=== PATIENT | male | born 1980 | race Caucasian/White ===

== ENCOUNTER 2020-03-10 09:34 | Inpatient (IN) ==
[2020-03-10 10:05] LABS: Hematocrit 48.3 % (42.0-52.0); Hemoglobin 17.1 gm/dL (13.5-18.0); Mean Cell Volume 83.9 fl (78-100); Mean Corpuscular Hemoglobin 29.7 pg (27-31); Mean Corpuscular Hgb Conc 35.4 g/dl (32-36); Mean Platelet Volume 9.8 fl (8-11.3); Neutrophil # 4.6 K/mm3 (1.3-6.0); Neutrophil % 66.3 % (42-75.0); Platelet Count 217 K/mm3 (150-450); Red Blood Count 5.76 M/mm3 (4.7-6.0); White Blood Count 6.9 K/mm3 (4.0-10.5)
--- NOTE | 2020-03-10 10:07 | ERNOTE ---
Chest Pain/Cardiac HPI Chief Complaint: Chest Pain Time Seen by Provider: 03/10/20 09:53 Source: patient Exam Limitations: no limitations Immunizations: IMMUNIZATION HX Immunizations Up to Date Yes History of Influenza Vaccine No Hx Pneumococcal Vaccination No Allergies/Adverse Reactions: Allergies No Known Allergies Allergy (Verified 03/10/20 09:49) Home Medications: HOME MEDICATIONS NK [No Home Medication] 08/14/16 [Last Taken Unknown] Narrative: Patient is here for chest pain and feeling shaky. He states that he was in his normal state of health last night when he went to bed, woke up at 6:00 this morning feeling shaky, he has chest pressure that he rates at a 3 out of 10, no radiation. Also has some low back pain and vomited once at home. He denies any nausea right now, denies any abdominal pain or diarrhea. He has no significant past medical history, takes no prescription medications, does not smoke, he drinks alcohol about twice a week, had 4 drinks yesterday afternoon. He works at the [employer], last shift was a week ago. He is not aware of any exposure to chemicals there. Date (Duration): 03/10/20 Time (Timing): 06:00 Timing: constant Severity/Quality: mild, pressure Location: central Chest Pain Radiation: no radiation Activities at Onset: sleep Nitro Today/Relief: no nitro taken today Aspirin Treatment Today: no aspirin today Associated Symptoms: Present: diaphoresis. Absent: headache, shortness of breath, fever/chills Prior Chest Pain/Cardiac Workup: Denies: prior chest pain, no prior cardiac workup Prior Treatment: Denies: recently seen, currently on antibiotics Review of Systems - Review of Systems Constitutional: Present: chills. Absent: recent illness ENT: Absent: nose congestion, nasal drainage, sore throat Respiratory: Absent: shortness of breath Cardiology: Present: chest pain, palpitations Gastrointestinal/Abdominal: Present: See HPI. Absent: abdominal pain Genitourinary: Absent: frequency, dysuria Musculoskeletal: Present: See HPI, back pain - low Skin: Absent: rash Neurological: Absent: headache Medical History (Last Reviewed 03/10/20 @ 10:19 by Sharri Royal MD) No pertinent past medical history Surgical History: Surgical History (Last Reviewed 03/10/20 @ 10:19 by Sharri Royal MD) No pertinent past surgical history Family History: Family History (Last Reviewed 03/10/20 @ 13:01 by Mariola Flores RN) Mother Emphysema of lung Father No problems noted. 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 Tobacco: Smoking Status: Never smoker Alcohol: alcohol intake: current alcohol intake frequency: holiday/special occasion Substance Use: substance use type: does not use Dietary Habits: caffeine: Yes caffeine comment: daily Physical Exam - Physical Exam General Appearance: Present: wd/wn, alert, mild distress Head Exam: Present: normal inspection Eye Exam: Normal inspection: bilateral, PERRL: bilateral Ears, Nose, Throat: Present: normal ENT inspection, normal pharynx Respiratory: Present: no respiratory distress, normal breath sounds, no accessory muscle use, chest nontender, lungs clear Cardiovascular/Chest: Present: tachycardia Gastrointestinal/Abdominal: Present: normal bowel sounds, nontender, nondistended, soft Extremity Exam: Present: no edema Neurological Exam: Present: alert, oriented, normal mood/affect Skin Exam: Present: normal color, diaphoresis - sweating, warm skin Progress - Results and Orders Patient's Lab Results:: I have reviewed the patient's lab results. - Vital Signs Patient's Vital Signs:: I have reviewed the patient's vital signs. Vital Signs: Vital Signs 03/10/20 09:34 03/10/20 09:54 Temperature 36.3 C Pulse Rate 126 H 124 H Respiratory Rate 16 Blood Pressure 193/131 H O2 Sat by Pulse Oximetry 97 - EKG EKG #1 EKG: NSR - sinustachycardia, RBBB, other - no prior for comparison EKG read: Interp. by me - X-Ray X-Ray #1 X-Ray: chest - no acute changes Interpretation: Interp. by me - Progress/Reassessment Chief Complaint: Chest Pain Progress Note-Subjective: 03/10/20 10:50 CIWA-Ar score 21 03/10/20 11:19 patient is feeling slightly less shaky after ativan, still tremor when hands stretched out discussed test results and diagnosis of diabetes 03/10/20 12:06 still tremor with outstretched hands, not sweating anymore discussed admitting him here for chest pain and addressing his symptoms at the same time he still denies drinking ETOH more than twice a week or drinking more than 4-5 drinks 03/10/20 12:07 discussed with santos Bedoya to admit for observation for chest pain Departure Clinical Impression: Chest pain Qualifiers: Chest pain type: unspecified Qualified Code(s): R07.9 - Chest pain, unspecified - Departure Disposition: Still a patient Condition: Stable
[2020-03-10] MEDS ORDERED: NORMAL SALINE 1,000 ML IV ONE (10:08)
[2020-03-10 10:14] LABS: INR 1.01 INR (0.92-1.08); Partial Thrombolplastin Time 26.1 Seconds (24-32)
[2020-03-10 10:25] LABS: ALT 80 U/L (19-67); AST 63 U/L (0-48); Albumin * 4.2 gm/dl (3.4-5.0); Alkaline Phosphatase * 93 U/L (50-170); BUN/Creatinine Ratio 12.2 (9.0-21.6); Bilirubin, Total 1.6 mg/dL (0.0-1.1); Blood Urea Nitrogen 11 mg/dL (6-23); Ca. Corrected For Albumin 8.3 mg/dL (8.4-10.2); Calcium * 8.8 mg/dL (7.9-10.9); Carbon Dioxide 25.3 mmol/L (24-32.6); Chloride 94 mmol/L (97-106); Glucose * 235 mg/dL (70-110); Potassium 3.3 mmol/L (3.4-4.6); Sodium 135 mmol/L (132-142); TSH * 1.246 uIU/mL (0.358-3.74); Total Protein 8.8 gm/dL (6.2-8.2)
[2020-03-10 10:26] LABS: Troponin I Less than 0.017 ng/mL (0.00-0.10)
[2020-03-10] MEDS ORDERED: LORazepam 2 MG/ML DISP.SYRIN IV ONE ×2 (10:49→11:20)
[2020-03-10 10:57] LABS: Hemoglobin A1C 8.8 % (4.00-6.0)
[2020-03-10 11:03] LABS: Urine Bilirubin 1 mg/dl (NEGATIVE); Urine Blood 25 /ul (NEGATIVE); Urine Ketone Large mg/dL (NEGATIVE); Urine Nitrite Negative (NEGATIVE); Urine Protein 100 mg/dL (NEGATIVE); Urine Specific Gravity >=1.030 SP.GR. (1.005-1.030); Urine pH 6.5 pH (5.0-7.0)
[2020-03-10 11:18] LABS: Urine Appearance Slightly Cloudy (CLEAR); Urine Bacteria 1+; Urine Color Yellow; Urine Mucus Few - 1+; Urine RBC 0-5 /hpf (0-5); Urine WBC 0-5 /hpf (0-5)
[2020-03-10 11:19] LABS: Cocaine Ur Negative (NEGATIVE); Urine Barbiturate Negative (NEGATIVE); Urine Benzodiazepines Negative (NEGATIVE); Urine Opiates Negative (NEGATIVE); Urine PCP Negative (NEGATIVE); Urine THC Negative (NEGATIVE)
[2020-03-10] MEDS ORDERED: ASPIRIN 81 MG TAB.CHEW PO ONE (12:14)
[2020-03-10] MEDS ORDERED: ROSUVASTATIN CALCIUM 20 MG TABLET PO STA (12:32)
[2020-03-10] MEDS ORDERED: LORazepam 2 MG/ML DISP.SYRIN IV PRN ×2 (12:32)
[2020-03-10] MEDS ORDERED: MULTIVIT INFUSN,ADULT 4,VIT K 10 ML, THIAMINE HCL 100 MG in NORMAL SALINE 1,000 ML IV ONE (12:32)
[2020-03-10] MEDS ORDERED: LISINOPRIL 10 MG TABLET PO ONE (12:38)
[2020-03-10] MEDS ORDERED: POTASSIUM BICARBONATE/CIT AC 25 MEQ TABLET.EFF PO ONE (12:59)
--- NOTE | 2020-03-10 12:59 | HP ---
Chief Complaint - Chief Complaint Date of Service: 03/10/20 Time of Service: 12:20 Chief Complaint: Chest pain, tremors and low back pain day History of Present Illness: 40-year-old male with no significant past medical history presents from home with complaints of substernal chest pain, low back pain and tremors. Chest pain is nonradiating. He also had an episode of nausea and vomiting at home. He states he woke up this morning with the symptoms. He does have a history of heavy alcohol intake but states he has been cutting back for the past few months. He states he only drinks 3-4 times a week. He states his last drink was yesterday afternoon. He states he had 3 mixed drinks and 3 beers. Denies any other drug use. States his symptoms are associated with some shortness of breath. He lives alone. He has been in the emergency department and has been given some fluid and Ativan. He states his symptoms have improved since coming to the ER. He was found to have tachycardia, elevated blood pressure and tachyp vitor. He had negative troponins, and elevated hemoglobin A1c of 8.8, alcohol level of 27, mild hypokalemia at 3.3, mild elevations of AST and ALT, CIWA score in the emergency department was over 20. He is being admitted for chest pain observation. Medical History (Last Reviewed 03/10/20 @ 10:19 by Sharri Royal MD) No pertinent past medical history Surgical History: Surgical History (Last Reviewed 03/10/20 @ 10:19 by Sharri Royal MD) No pertinent past surgical history Family History: Family History (Last Reviewed 03/10/20 @ 09:48 by Romeo Lima RN) Mother Emphysema of lung Father No problems noted. 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 Tobacco: Smoking Status: Never smoker Alcohol: alcohol intake: current alcohol intake frequency: holiday/special occasion Substance Use: substance use type: does not use Dietary Habits: caffeine: Yes caffeine comment: daily Review Of Systems (GEN) - Review of Systems Generalized/Overall Review: Absent: Fever Respiratory: Present: Shortness of Breath Cardiac: Present: Chest Pain Abdominal: Absent: Abdominal Pain Musculoskeletal: Present: Back Pain - Right lower Misc: All systems neg except as marked Immunizations: IMMUNIZATION HX Immunizations Up to Date Yes History of Influenza Vaccine No Hx Pneumococcal Vaccination No Allergies/Adverse Reactions: Allergies Allergy/AdvReac Type Severity Reaction Status Date / Time No Known Allergies Allergy Verified 03/10/20 09:49 Home Medications: HOME MEDICATIONS NK [No Home Medication] 08/14/16 [Last Taken Unknown] Exam - Exam Vital Signs: Vital Signs - Last Taken Temp 36.4 C 03/10/20 12:19 Pulse 129 H 03/10/20 12:49 Resp 25 H 03/10/20 12:49 BP 182/111 H 03/10/20 12:49 Pulse Ox 97 03/10/20 12:49 Constitutional: Present: Alert, Cooperative, No distress, Obese ENT Exam: Present: hearing grossly normal, moist mucous membranes Eye Exam: bilateral eye: normal inspection, PERRL, EOMI Neck: Present: non-tender. Absent: lymphadenopathy (R), lymphadenopathy (L) Back Exam: Present: normal inspection, no CVA tenderness Respiratory: Present: lungs clear, no respiratory distress, no accessory muscle use, No wheezing. Absent: crackles, rhonchi Cardiovascular/Chest: Present: normal peripheral pulses, regular rate, rhythm, no murmur, tachycardia. Absent: edema Peripheral Pulses: dorsalis-pedis (R): 2+, dorsalis-pedis (L): 2+ Abdomen: Present: Normal bowel sounds, soft, nontender, obese Extremity: Present: no pedal edema Skin Exam: Present: normal color, warm/dry, no cyanosis Neurologic: Present: alert, normal mood/affect Appearance: Present: appropriate appearance, appropriate insight Eye contact: Present: cooperative Thoughts: Present: normal mood /affect Diagnostic Studies: Abnormal Lab Results 03/10/20 03/10/20 03/10/20 Range/Units 09:49 10:02 10:02 Basophils % 1.2 H (0.0-1.0) % Potassium 3.3 L (3.4-4.6) mmol/L Chloride 94 L (97-106) mmol/L Anion Gap 19.0 H (6.8-13.8) mmol/L Random Glucose 235 H (70-110) mg/dL Hemoglobin A1c 8.8 H (4.00-6.0) % Calcium Adj for Albumin 8.3 L (8.4-10.2) mg/dL Total Bilirubin 1.6 H (0.0-1.1) mg/dL AST 63 H (0-48) U/L ALT 80 H (19-67) U/L Total Protein 8.8 H (6.2-8.2) gm/dL Urine Protein (NEGATIVE) mg/dL Urine Glucose (UA) (NEGATIVE) mg/dL Urine Blood (NEGATIVE) /ul Urine Bilirubin (NEGATIVE) mg/dl Prot Sulfosalicylic Acd (0) mg/dL Urine Urobilinogen (NORMAL) EU/dl Urine Bacteria (NONE) Urine Mucus (NONE) Ethyl Alcohol 27.0 H (0.0-10.0) mg/dL 03/10/20 Range/Units 11:00 Basophils % (0.0-1.0) % Potassium (3.4-4.6) mmol/L Chloride (97-106) mmol/L Anion Gap (6.8-13.8) mmol/L Random Glucose (70-110) mg/dL Hemoglobin A1c (4.00-6.0) % Calcium Adj for Albumin (8.4-10.2) mg/dL Total Bilirubin (0.0-1.1) mg/dL AST (0-48) U/L ALT (19-67) U/L Total Protein (6.2-8.2) gm/dL Urine Protein 100 H (NEGATIVE) mg/dL Urine Glucose (UA) 500 H (NEGATIVE) mg/dL Urine Blood 25 H (NEGATIVE) /ul Urine Bilirubin 1 H (NEGATIVE) mg/dl Prot Sulfosalicylic Acd 3+ H (0) mg/dL Urine Urobilinogen 2.0 H (NORMAL) EU/dl Urine Bacteria 1+ H (NONE) Urine Mucus Few - 1+ H (NONE) Ethyl Alcohol (0.0-10.0) mg/dL Laboratory Results WBC 6.9 K/mm3 (4.0-10.5) 03/10/20 10:02 RBC 5.76 M/mm3 (4.7-6.0) 03/10/20 10:02 Hgb 17.1 gm/dL (13.5-18.0) 03/10/20 10:02 Hct 48.3 % (42.0-52.0) 03/10/20 10:02 MCV 83.9 fl (78-100) 03/10/20 10:02 MCH 29.7 pg (27-31) 03/10/20 10:02 MCHC 35.4 g/dl (32-36) 03/10/20 10:02 RDW 12.0 % (11.5-14.0) 03/10/20 10:02 Plt Count 217 K/mm3 (150-450) 03/10/20 10:02 MPV 9.8 fl (8-11.3) 03/10/20 10:02 Immature Gran % (Auto) 0.10 % (0.001-0.429) 03/10/20 10:02 Immature Gran # (Auto) 0.01 K/mm3 (0.000-0.0310) 03/10/20 10:02 Neutrophils % 66.3 % (42-75.0) 03/10/20 10:02 Lymphocytes % 24.8 % (20-51) 03/10/20 10:02 Monocytes % 7.3 % (0.0-9) 03/10/20 10:02 Eosinophils % 0.3 % (0.0-3.0) 03/10/20 10:02 Basophils % 1.2 % (0.0-1.0) H 03/10/20 10:02 Nucleated RBC % 0.0 k/mm3 (0-1) 03/10/20 10:02 Neutrophils # 4.6 K/mm3 (1.3-6.0) 03/10/20 10:02 Lymphocytes # 1.72 k/mm3 (1.5-3.5) 03/10/20 10:02 Monocytes # 0.5 k/mm3 (0.0-1.0) 03/10/20 10:02 Eosinophils # 0.0 k/mm3 (0.0-0.7) 03/10/20 10:02 Absolute Basophils 0.1 k/mm3 (0.0-0.1) 03/10/20 10:02 PT 10.0 Seconds (9.1-10.7) 03/10/20 10:02 INR (Anticoag Therapy) 1.01 INR (0.92-1.08) 03/10/20 10:02 PTT ([place]) 26.1 Seconds (24-32) 03/10/20 10:02 Sodium 135 mmol/L (132-142) 03/10/20 10:02 Plasma Sodium 137 mmol/L (130-142) 03/10/20 10:02 Potassium 3.3 mmol/L (3.4-4.6) L 03/10/20 10:02 Chloride 94 mmol/L (97-106) L 03/10/20 10:02 Carbon Dioxide 25.3 mmol/L (24-32.6) 03/10/20 10:02 Anion Gap 19.0 mmol/L (6.8-13.8) H 03/10/20 10:02 BUN 11 mg/dL (6-23) 03/10/20 10:02 Creatinine 0.90 mg/dL (0.4-1.4) 03/10/20 10:02 Est GFR (Non-Af Amer) 99 mL/min (60-130) 03/10/20 10:02 BUN/Creatinine Ratio 12.2 (9.0-21.6) 03/10/20 10:02 Random Glucose 235 mg/dL (70-110) H 03/10/20 10:02 Mean Blood Glucose 207 mg/dL 03/10/20 09:49 Hemoglobin A1c 8.8 % (4.00-6.0) H 03/10/20 09:49 Calcium 8.8 mg/dL (7.9-10.9) 03/10/20 10:02 Calcium Adj for Albumin 8.3 mg/dL (8.4-10.2) L 03/10/20 10:02 Magnesium 1.2 mg/dL (1.2-2.8) 03/10/20 09:49 Total Bilirubin 1.6 mg/dL (0.0-1.1) H 03/10/20 10:02 AST 63 U/L (0-48) H 03/10/20 10:02 ALT 80 U/L (19-67) H 03/10/20 10:02 Alkaline Phosphatase 93 U/L (50-170) 03/10/20 10:02 Troponin I Less than 0.017 ng/mL (0.00-0.10) 03/10/20 10:02 C-Reactive Prot, Quant Less than 0.2 mg/dL (0.0-0.9) 03/10/20 10:02 Total Protein 8.8 gm/dL (6.2-8.2) H 03/10/20 10:02 Albumin 4.2 gm/dl (3.4-5.0) 03/10/20 10:02 TSH 1.246 uIU/mL (0.358-3.74) 03/10/20 10:02 Urine Color Yellow 03/10/20 11:00 Urine Appearance Slightly cloudy (CLEAR) 03/10/20 11:00 Urine pH 6.5 pH (5.0-7.0) 03/10/20 11:00 Ur Specific [place] >=1.030 SP.GR. (1.005-1.030) 03/10/20 11:00 Urine Protein 100 mg/dL (NEGATIVE) H 03/10/20 11:00 Urine Glucose (UA) 500 mg/dL (NEGATIVE) H 03/10/20 11:00 Urine Ketones Large mg/dL (NEGATIVE) 03/10/20 11:00 Urine Blood 25 /ul (NEGATIVE) H 03/10/20 11:00 Urine Nitrate Negative (NEGATIVE) 03/10/20 11:00 Urine Bilirubin 1 mg/dl (NEGATIVE) H 03/10/20 11:00 Urine Ictotest Negative (NEGATIVE) 03/10/20 11:00 Prot Sulfosalicylic Acd 3+ mg/dL (0) H 03/10/20 11:00 Urine Urobilinogen 2.0 EU/dl (NORMAL) H 03/10/20 11:00 Ur Leukocyte Esterase Negative /ul (NEGATIVE) 03/10/20 11:00 Urine RBC 0-5 /hpf (0-5) 03/10/20 11:00 Urine WBC 0-5 /hpf (0-5) 03/10/20 11:00 Ur Epithelial Cells 0-5 /hpf (0-5) 03/10/20 11:00 Urine Bacteria 1+ (NONE) H 03/10/20 11:00 Urine Mucus Few - 1+ (NONE) H 03/10/20 11:00 Urine Culture Comments No culture indicated 03/10/20 11:00 Urine Opiates Screen Negative (NEGATIVE) 03/10/20 10:55 Barbiturate Screen Negative (NEGATIVE) 03/10/20 10:55 Ur Phencyclidine Scrn Negative (NEGATIVE) 03/10/20 10:55 Urine Amphetamine Negative (NEGATIVE) 03/10/20 10:55 U Benzodiazepines Scrn Negative (NEGATIVE) 03/10/20 10:55 Urine Cocaine Screen Negative (NEGATIVE) 03/10/20 10:55 Urine Marijuana (THC) Negative (NEGATIVE) 03/10/20 10:55 Ethyl Alcohol 27.0 mg/dL (0.0-10.0) H 03/10/20 10:02 Serum Ketones Negative (NEGATIVE) 03/10/20 09:49 Assessment/Plan - Narrative Narrative: 40-year-old male with no significant past medical history presents from home with complaints of substernal chest pain, low back pain and tremors. Chest pain is nonradiating. He also had an episode of nausea and vomiting at home. He states he woke up this morning with the symptoms. He does have a history of heavy alcohol intake and states his last drink was yesterday afternoon. He states he had 3 mixed drinks and 3 beers. Denies any other drug use. States his symptoms are associated with some shortness of breath. He lives alone. He has been in the emergency department and has been given some fluid and Ativan. He states his symptoms have improved since coming to the ER. He was found to have tachycardia, elevated blood pressure and tachypnea. He had negative troponins, and elevated hemoglobin A1c of 8.8, alcohol level of 27, mild hypokalemia at 3.3, mild elevations of AST and ALT, CIWA score in the emergency department was over 20. He is being admitted for chest pain observation. Plan #1 start CIWA protocol with Librium. Give Librium 25 mg every hour for CIWA greater than 8. #2 start lisinopril 10 mg x 1 #3 replete potassium #4 carb consistent diet #5 insulin sliding scale - Assessment/Plan (1) Alcohol withdrawal Problem: Acute (2) Hypertension Problem: Acute Qualifiers: Hypertension type: essential hypertension Qualified Code(s): I10 - Essential (primary) hypertension (3) New onset type 2 diabetes mellitus Problem: Acute (4) Tachycardia Problem: Acute (5) Hypokalemia Problem: Acute (6) Chest pain Problem: Acute Qualifiers: Chest pain type: unspecified Qualified Code(s): R07.9 - Chest pain, unspecified
[2020-03-10] MEDS: chlordiazePOXIDE HCL 25 MG CAPSULE PO PRN ×4 (15:18→21:33)
[2020-03-10] MEDS: INSULIN LISPRO 100 UNITS/ML VIAL SC SCH ×2 (17:18→20:30)
[2020-03-11] MEDS: chlordiazePOXIDE HCL 25 MG CAPSULE PO PRN ×3 (00:38→05:32)
[2020-03-11] MEDS: INSULIN LISPRO 100 UNITS/ML VIAL SC SCH ×4 (07:34→20:08)
[2020-03-11] MEDS ORDERED: LISINOPRIL 20 MG TABLET PO SCH ×2 (09:00→12:11)
[2020-03-11] MEDS ORDERED: amLODIPine BESYLATE 5 MG TABLET PO SCH (09:00)
--- NOTE | 2020-03-11 09:59 | DS ---
(1) Alcohol withdrawal Problem: Acute Qualifiers: Complication of substance-induced condition: uncomplicated Qualified Code(s): F10.230 - Alcohol dependence with withdrawal, uncomplicated (2) Hypertension Problem: Acute Qualifiers: Hypertension type: essential hypertension Qualified Code(s): I10 - Essential (primary) hypertension (3) New onset type 2 diabetes mellitus Problem: Acute (4) Tachycardia Problem: Acute (5) Hypokalemia Problem: Acute (6) Chest pain Problem: Resolved Qualifiers: Chest pain type: unspecified Qualified Code(s): R07.9 - Chest pain, u nspecified Date of Discharge:: 03/12/20 Hospital Course: 40-year-old male with no significant past medical history presents from home with complaints of substernal chest pain, low back pain and tremors. Chest pain is nonradiating. He also had an episode of nausea and vomiting at home. He states he woke up this morning with the symptoms. He does have a history of heavy alcohol intake but states he has been cutting back for the past few months. He states he only drinks 3-4 times a week. He states his last drink was yesterday afternoon. He states he had 3 mixed drinks and 3 beers. Denies any other drug use. States his symptoms are associated with some shortness of breath. He lives alone. He has been in the emergency department and has been given some fluid and Ativan. He states his symptoms have improved since coming to the ER. He was found to have tachycardia, elevated blood pressure and tachypnea. He had negative troponins, and elevated hemoglobin A1c of 8.8, alcohol level of 27, mild hypokalemia at 3.3, mild elevations of AST and ALT, CIWA score in the emergency department was over 20. He is being admitted for chest pain observation. He received 5 doses of Librium 25 mg and his CIWA score dropped to 4. He is feeling better and does not have any chest pain. He was started on insulin for elevated blood sugars and lisinopril, amlodipine, chlorthalidone, and metoprolol for hypertension. He is stable for discharge home today. I will start him on metformin 500 mg twice a day for new onset diabetes mellitus type 2. He will take metformin once daily for 1-2 weeks then increase to twice daily. He will follow-up with me in the office within 1 to 2 weeks of discharge. Procedures Performed: none Results and Findings: Lab Pending Results 03/10/20 09:49: Serum Ketones Negative 03/10/20 09:49: Mean Blood Glucose 207, Hemoglobin A1c 8.8 H 03/10/20 09:49: Magnesium 1.2 03/10/20 10:02: WBC 6.9, RBC 5.76, Hgb 17.1, Hct 48.3, MCV 83.9, MCH 29.7, MCHC 35.4, RDW 12.0, Plt Count 217, MPV 9.8, Immature Gran % (Auto) 0.10, Immature Gran # (Auto) 0.01, Neutrophils % 66.3, Lymphocytes % 24.8, Monocytes % 7.3, Eosinophils % 0.3, Basophils % 1.2 H, Nucleated RBC % 0.0, Neutrophils # 4.6, Lymphocytes # 1.72, Monocytes # 0.5, Eosinophils # 0.0, Absolute Basophils 0.1 03/10/20 10:02: PT 10.0, INR (Anticoag Therapy) 1.01, PTT ([place]) 26.1 03/10/20 10:02: Sodium 135, Plasma Sodium 137, Potassium 3.3 L, Chloride 94 L, Carbon Dioxide 25.3, Anion Gap 19.0 H, BUN 11, Creatinine 0.90, Est GFR (Non-Af Amer) 99, BUN/Creatinine Ratio 12.2, Random Glucose 235 H, Calcium 8.8, Calcium Adj for Albumin 8.3 L, Total Bilirubin 1.6 H, AST 63 H, ALT 80 H, Alkaline Phosphatase 93, Troponin I Less than 0.017, C-Reactive Prot, Quant Less than 0.2, Total Protein 8.8 H, Albumin 4.2, TSH 1.246, Ethyl Alcohol 27.0 H 03/10/20 10:55: Urine Opiates Screen Negative, Barbiturate Screen Negative, Ur Phencyclidine Scrn Negative, Urine Amphetamine Negative, U Benzodiazepines Scrn Negative, Urine Cocaine Screen Negative, Urine Marijuana (THC) Negative 03/10/20 11:00: Urine Color Yellow, Urine Appearance Slightly cloudy, Urine pH 6.5, Ur Specific [place] >=1.030, Urine Protein 100 H, Urine Glucose (UA) 500 H, Urine Ketones Large, Urine Blood 25 H, Urine Nitrate Negative, Urine Bilirubin 1 H, Urine Ictotest Negative, Prot Sulfosalicylic Acd 3+ H, Urine Urobilinogen 2.0 H, Ur Leukocyte Esterase Negative, Urine RBC 0-5, Urine WBC 0-5, Ur Epithelial Cells 0-5, Urine Bacteria 1+ H, Urine Mucus Few - 1+ H, Urine Culture Comments No culture indicated 03/10/20 17:05: Troponin I Less than 0.017 Discharge Location: Home Disposition: Home self-care Condition: Stable Discharge Activity: Activity as tolerated Discharge Diet: Consistent carbs Problem Oriented Discharge Instructions to Patient/Family: Hyperglycemia, [id number], Type 2 Diabetes Mellitus, Self Care, Adult, [id number], Carbohydrate Counting for Diabetes Mellitus, Adult, Preventing Diabetes Mellitus Complications, Blood Glucose Monitoring, Adult, Hypoglycemia, [id number] Additional Patient Instructions (free text): Follow up with Dr. Ba March 19 at 9:00 a.m. Check fasting blood sugar once daily and keep a log. Prescriptions (Any new or edited meds): Chlorthalidone [Hygroton] 25 mg PO DAILY #30 tab Transmission Status: Pending to [facility] Isradipine 2.5 mg PO DAILY #30 cap Transmission Status: Pending to [facility] Metoprolol Tartrate [Lopressor] 25 mg PO BID #60 tab Transmission Status: Pending to [facility] Lisinopril [Zestril] 40 mg PO DAILY #30 tab Transmission Status: Pending to [facility] Complete Home Medications List: Complete Home Medication List: metFORMIN HCL [Metformin HCl ER] 500 mg PO BID #60 tab.er.24h 03/11/20 Chlorthalidone [Hygroton] 25 mg PO DAILY #30 tab 03/12/20 Isradipine 2.5 mg PO DAILY #30 cap 03/12/20 Lisinopril [Zestril] 40 mg PO DAILY #30 tab 03/12/20 Metoprolol Tartrate [Lopressor] 25 mg PO BID #60 tab 03/12/20 Forms: Patient Portal Registration
[2020-03-11] MEDS ORDERED: LISINOPRIL 20 MG TABLET PO ONE (12:30)
[2020-03-11] MEDS ORDERED: METOPROLOL TARTRATE 25 MG TABLET PO SCH (14:15)
--- NOTE | 2020-03-11 15:47 | PN ---
Subjective - Date and Time Seen Date: 03/11/20 Time: 09:00 Subjective Narrative: Overall he feels better than when he came in yesterday. Denies chest pain but has epigastric abdominal discomfort. He tolerated his breakfast well. He states he has had tremors of his hands since he was young and his mom had similar tremors. Objective - Review of Systems Generalized/Overall Review: Reports: Chills, Fever Respiratory: Denies: Cough, Shortness of Breath Cardiac: Denies: Chest Pain Abdominal: Reports: Other - Gastric abdominal discomfort Neurological: Reports: Tremors Misc: All systems neg except as marked - Vitals Vitals: Last Vital Signs Temp 36.7 C 03/11/20 15:11 Pulse 112 H 03/11/20 15:11 Resp 16 03/11/20 15:11 BP 147/111 H 03/11/20 15:11 Pulse Ox 97 03/11/20 15:11 - Exam Constitutional: Present: Alert, Well developed, Well nourished, No distress, Middle aged, Obese ENT Exam: Present: hearing grossly normal Neck: Present: non-tender, supple. Absent: lymphadenopathy (R), lymphadenopathy (L) Respiratory: Present: lungs clear, no respiratory distress, no accessory muscle use. Absent: crackles, rhonchi, wheezing Cardiovascular/Chest: Present: normal peripheral pulses, regular rate, rhythm, no edema, no murmur Abdomen: Present: Normal bowel sounds, soft, nontender, obese Extremity: Present: no pedal edema. Absent: lower extremity edema Skin Exam: Present: normal color, warm/dry Neurologic: Present: alert, normal mood/affect Appearance: Present: appropriate appearance Eye contact: Present: cooperative Thoughts: Present: normal mood /affect Assessment/Plan Plan Narrative: 40-year-old male with no significant past medical history presents from home with complaints of substernal chest pain, low back pain and tremors. Chest pain is nonradiating. He also had an episode of nausea and vomiting at home. He states he woke up this morning with the symptoms. He does have a history of heavy alcohol intake and states his last drink was yesterday afternoon. He states he had 3 mixed drinks and 3 beers. Denies any other drug use. States his symptoms are associated with some shortness of breath. He lives alone. He has been in the emergency department and has been given some fluid and Ativan. He states his symptoms have improved since coming to the ER. He was found to have tachycardia, elevated blood pressure and tachypnea. He had negative troponins, and elevated hemoglobin A1c of 8.8, alcohol level of 27, mild hypokalemia at 3.3, mild elevations of AST and ALT, CIWA score in the emergency department was over 20. He is being admitted for chest pain observation. He continues to be tachycardic and hypertensive today. I will make him inpatient status for uncontrolled hypertension and tachycardia. Plan #1 Continue CIWA protocol with Librium. Give Librium 25 mg every hour for CIWA greater than 8. #2 Increase lisinopril to 20 mg daily. #3 replete potassium #4 carb consistent diet #5 insulin sliding scale #6 start metformin daily. #7 Start chlorthalidone 25 mg daily #8 VTE prophylaxis with Lovenox - Problems/Diagnosis (1) Alcohol withdrawal Problem: Acute Qualifiers: Complication of substance-induced condition: uncomplicated Qualified Code(s): F10.230 - Alcohol dependence with withdrawal, uncomplicated (2) Hypertension Problem: Acute Qualifiers: Hypertension type: essential hypertension Qualified Code(s): I10 - Essential (primary) hypertension (3) New onset type 2 diabetes mellitus Problem: Acute (4) Tachycardia Problem: Acute (5) Hypokalemia Problem: Acute (6) Chest pain Problem: Resolved Qualifiers: Chest pain type: unspecified Qualified Code(s): R07.9 - Chest pain, unspecified
[2020-03-11] MEDS ORDERED: ENOXAPARIN SODIUM 40 MG/0.4 ML SYRG SC SCH (17:00)
[2020-03-11] MEDS: CHLORTHALIDONE 25 MG TABLET PO SCH (17:07)
[2020-03-11] MEDS: METOPROLOL TARTRATE 25 MG TABLET PO SCH (20:11)
[2020-03-12] MEDS: INSULIN LISPRO 100 UNITS/ML VIAL SC SCH (07:10)
[2020-03-12] MEDS: METOPROLOL TARTRATE 25 MG TABLET PO SCH (08:01)
[2020-03-12] MEDS: CHLORTHALIDONE 25 MG TABLET PO SCH (08:01)
[2020-03-12] MEDS ORDERED: amLODIPine BESYLATE 10 MG TABLET PO SCH (09:00)
[2020-03-12] MEDS ORDERED: LISINOPRIL 40 MG TABLET PO SCH (09:00)
[2020-03-12 10:41] VITALS: BP 143/95
== END 2020-03-12 11:16 | disposition home or self-care (01) | DRG 897 ==
LOC: MS 09:34 → ER 09:34 → MS 13:06
PROVIDERS: ADMIT Internal Medicine; ATTEND Internal Medicine
CPT/HCPCS: 36415; 71020; 71046; 80053; 80307; 81001; 82009; 83036; 83735; 84443; 84484; 85025; 85610; 85730; 86140; 93005; 96361; 96365; 96366; 96375; 96376; 99284; 99285; G0378

== ENCOUNTER 2020-09-17 16:11 | Observation (INO) ==
[2020-09-17] MEDS ORDERED: NORMAL SALINE 1,000 ML IV PRN (16:44)
[2020-09-17] MEDS ORDERED: THIAMINE HCL 100 MG/ML VIAL IM STA (16:45)
[2020-09-17] MEDS ORDERED: LORazepam 2 MG/ML DISP.SYRIN IV ONE ×4 (16:46→21:09)
[2020-09-17 16:49] LABS: Hematocrit 46.5 % (42.0-52.0); Hemoglobin 16.2 gm/dL (13.5-18.0); Mean Cell Volume 84.7 fl (78-100); Mean Corpuscular Hemoglobin 29.5 pg (27-31); Mean Corpuscular Hgb Conc 34.8 g/dl (32-36); Mean Platelet Volume 9.5 fl (8-11.3); Neutrophil % 64.2 % (42-75.0); Platelet Count 163 K/mm3 (150-450); Red Blood Count 5.49 M/mm3 (4.7-6.0); Red Cell Distribution Width 11.6 % (11.5-14.0); White Blood Count 4.6 K/mm3 (4.0-10.5)
--- NOTE | 2020-09-17 16:53 | ERNOTE ---
Abdominal HPI - Narrative Date of Service: 09/17/20 - General Chief Complaint: Abdominal Pain Time Seen by Provider: 09/17/20 16:35 Source: patient Exam Limitations: no limitations - Immun/Allergies/Home Medications Immunizatons: IMMUNIZATION HX Immunizations Up to Date Yes History of Influenza Vaccine No Hx Pneumococcal Vaccination No Allergies/Adverse Reactions: Allergies No Known Allergies Allergy (Verified 09/17/20 16:29) Home Medications: HOME MEDICATIONS metFORMIN HCL [Metformin HCl ER] 500 mg PO BID #60 tab.er.24h 03/11/20 [Last Taken Unknown] Chlorthalidone [Hygroton] 25 mg PO DAILY #30 tab 03/12/20 [Last Taken Unknown] Isradipine 2.5 mg PO DAILY #30 cap 03/12/20 [Last Taken Unknown] Lisinopril [Zestril] 40 mg PO DAILY #30 tab 03/12/20 [Last Taken Unknown] Metoprolol Tartrate [Lopressor] 25 mg PO BID #60 tab 03/12/20 [Last Taken Unknown] blood sugar diagnostic See Rx Instructions .ROUTE .MEDSUPPLY #1 ea 03/12/20 [Last Taken Unknown] blood-glucose meter See Rx Instructions .ROUTE .MEDSUPPLY #1 ea 03/12/20 [Last Taken Unknown] lancets 33 gauge See Rx Instructions .ROUTE .MEDSUPPLY #100 ea 03/12/20 [Last Taken Unknown] - Pain Score Pain Score #1 Pain Score: 6 Abdominal Pain Onset Location: epigastric Pain Radiation: no radiation - History of Present Illness Narrative: The patient is a 40 year old male who presents for epigastric pain and diarrhea which has been present since Tuesday. There are associated symptoms of fatigue and shakiness. The patient reports epigastric pain, 6/10. There are no alleviating factors. There are no aggravating factors. Previous treatments have included: none. The past medical history includes: HTN, DM and ETOH withdrawl. The social history is positive for former smoker. The patient has had no known ill contacts. Patient states that he developed symptoms on Tuesday evening and states that Tuesday was his last alcohol intake which he had 3 beers and a few shots. Patient states that he had a few beers on Tuesday and but denies daily or heavy alcohol use. Patient states he was feeling fine when he went to bed then awoke having abdominal pain that has persisted, nausea and shakiness with fatigue. Patient was admitted with similar symptoms 03/10/20 and dx with alcohol withdrawal. Patient during that visit also disclosed that he occasionally consumes alcohol. Patient states he works at the [employer] and states that a few people have had COVID but denies known exposure to individuals. CIWA score 13. Review of Systems - Review of Systems Constitutional: Present: chills, diaphoresis, fatigue. Absent: recent illness, fever EYE: Present: no symptoms reported ENT: Present: no symptoms reported. Absent: ear pain, nasal drainage, sore throat Respiratory: Present: shortness of breath, cough - chronic without change Cardiology: Present: chest pain, palpitations Gastrointestinal/Abdominal: Present: nausea, diarrhea, abdominal pain. Absent: vomiting Genitourinary: Present: no symptoms reported. Absent: dysuria, decreased urinary output Musculoskeletal: Present: no symptoms reported Skin: Present: no symptoms reported. Absent: rash Neurological: Present: weakness. Absent: headache, dizziness/light-headedness All Other Systems: All systems neg except as marked Medical History (Last Reviewed 09/17/20 @ 16:49 by MO Lopez) Pharyngitis (Acute) Chest pain (Resolved) Alcohol withdrawal (Acute) Hypertension (Acute) New onset type 2 diabetes mellitus (Acute) Tachycardia (Acute) Hypokalemia (Acute) No pertinent past medical history Surgical History: Surgical History (Last Reviewed 09/17/20 @ 16:49 by MO Lopez) No pertinent past surgical history [place] teeth extracted Family History: Family History (Last Reviewed 09/17/20 @ 16:49 by MO Lopez) Mother Emphysema of lung Father No problems noted. Social History: (Last Reviewed 09/17/20 @ 16:49 by MO Lopez) Social History: longterm: No Marital status: household members: spouse number of children: 1 current occupational status: employed current occupation: [employer] Highest level of school completed/degree received: high school graduate Service: No Tobacco: Smoking Status: Former smoker second hand exposure: No Alcohol: alcohol intake: current alcohol intake frequency: holiday/special occasion Substance Use: substance use type: does not use Dietary Habits: caffeine: Yes caffeine comment: daily Type: other Exercise: Physical activity functional status: normal ROM and activity Physical Exam - Physical Exam General Appearance: Present: wd/wn, alert, moderate distress, anxious Head Exam: Present: normal inspection, no evidence of injury Eye Exam: Normal inspection: bilateral, PERRL: bilateral, EOMI: bilateral, Sclera injection: bilateral Ears, Nose, Throat: Present: dry mucous membranes Neck: Present: normal inspection Respiratory: Present: no respiratory distress, normal breath sounds, no accessory muscle use, lungs clear Cardiovascular/Chest: Present: no murmur, tachycardia Gastrointestinal/Abdominal: Present: normal bowel sounds, nondistended, soft, no organomegaly, tenderness - epigastric, mild. Absent: guarding, rebound, mass Extremity Exam: Present: no edema Neurological Exam: Present: alert, oriented, other - tremor noted to bilateral arms at rest, patient appears anxious Skin Exam: Present: normal color, warm/dry Progress - Date and Time Seen: Date and Time: 09/17/20 18:45 Patient states he did not take his scheduled medications today. Will administer dose of Lopressor for persistent tachycardia and hypertension. Case reviewed with and will admit patient for alcohol withdrawal. Discussed plan of care with patient and verbalized understanding. Patient states he is feeling slightly better then upon arrival. 09/17/20 19:42 Patient rapid Covid test is positive, this was relayed to Dr. Castillo. Due to patient's tachycardia request to proceed with D-dimer and CTA if positive. 09/17/20 21:42 Reviewed CTA results with , will administer Lovenox and she will reassess to continue during admission. - Results and Orders Patient's Lab Results:: I have reviewed the patient's lab results. - Vital Signs Patient's Vital Signs:: I have reviewed the patient's vital signs. Vital Signs: Vital Signs 09/17/20 16:25 Temperature 36.3 C Pulse Rate 138 H Respiratory Rate 16 Blood Pressure 184/112 H O2 Sat by Pulse Oximetry 96 - EKG EKG #1 EKG: NSR - tachycardia rate 130, RBBB EKG read: Reviewed by me - X-Ray X-Ray #1 X-Ray: abdomen Interpretation: Reviewed by me X-ray Comments: Impression: Nonspecific, nonobstructive bowel gas pattern. No free air. Electronically signed by Gio Koehler D.O.. - CT/Ultrasound CT/Ultrasound Narrative: Impression: 1. Limited CT pulmonary angiogram secondary to suboptimal bolus timing and patient motion. No obvious evidence of a central PE. Peripheral pulmonary embolism is not excluded. 2. Medial right lower lung consolidation with bronchiectasis and bronchial wall thickening. Correlate clinically for pneumonia. Recommend follow-up CT in 6 weeks to assess for resolution. Probably reactive mediastinal and bilateral hilar lymph nodes. 3.Additional findings and comments are as above. Electronically signed by Gio Koehler D.O.. - Progress/Reassessment Chief Complaint: Abdominal Pain Progress:: Improved Departure Clinical Impression: COVID-19 Hypertension Qualifiers: Hypertension type: essential hypertension Qualified Code(s): I10 - Essential (primary) hypertension Diabetes mellitus Qualifiers: Diabetes mellitus type: type 2 Diabetes mellitus oil heaterman insulin use: without [place] [facility] use Diabetes mellitus complication status: with hyperglycemia Qualified Code(s): E11.65 - Type 2 diabetes mellitus with hyperglycemia Alcohol withdrawal Qualifiers: Complication of substance-induced condition: with unspecified complication Qualified Code(s): F10.239 - Alcohol dependence with withdrawal, unspecified - Departure Disposition: Still a patient Condition: Fair
[2020-09-17 17:08] LABS: ALT 48 U/L (19-67); AST 51 U/L (0-48); Albumin * 3.7 gm/dl (3.4-5.0); Alkaline Phosphatase * 103 U/L (50-170); Amylase * 39 U/L (25-115); Anion Gap 16.3 mmol/L (6.8-13.8); BUN/Creatinine Ratio 4.7 (9.0-21.6); Bilirubin, Total 1.4 mg/dL (0.0-1.1); Blood Urea Nitrogen 5 mg/dL (6-23); Ca. Corrected For Albumin 8.8 mg/dL (8.4-10.2); Calcium * 8.9 mg/dL (7.9-10.9); Carbon Dioxide 28.4 mmol/L (24-32.6); Chloride 91 mmol/L (97-106); Glucose * 250 mg/dL (70-110); Lipase 194 U/L (73-393); Potassium 2.7 mmol/L (3.4-4.6); Sodium 133 mmol/L (132-142); Total Protein 8.7 gm/dL (6.2-8.2)
[2020-09-17 17:13] LABS: Troponin I Less than 0.017 ng/mL (0.00-0.10)
[2020-09-17] MEDS ORDERED: POTASSIUM CHLORIDE 20 MEQ TABLET.SA PO ONE (17:38)
[2020-09-17 17:58] LABS: Urine Bilirubin 1 mg/dl (NEGATIVE); Urine Blood 25 /ul (NEGATIVE); Urine Ketone 50 mg/dL (NEGATIVE); Urine Nitrite Negative (NEGATIVE); Urine Protein 100 mg/dL (NEGATIVE); Urine Specific Gravity 1.025 SP.GR. (1.005-1.030); Urine Urobilinogen Normal (NORMAL); Urine pH 6.5 pH (5.0-7.0)
[2020-09-17 18:09] LABS: Urine Appearance Slightly Cloudy (CLEAR); Urine Bacteria TRACE; Urine Color Dark Yellow; Urine Hyaline Cast >25 /LPF; Urine Mucus Moderate - 2+; Urine Transitional Epi Cells Few - 1+ /hpf; Urine WBC 0-5 /hpf (0-5)
[2020-09-17] MEDS ORDERED: NORMAL SALINE 1,000 ML IV ONE (18:11)
[2020-09-17 18:13] LABS: Cocaine Ur Negative (NEGATIVE); Urine Barbiturate Negative (NEGATIVE); Urine Benzodiazepines Negative (NEGATIVE); Urine Opiates Negative (NEGATIVE); Urine PCP Negative (NEGATIVE); Urine THC Negative (NEGATIVE)
[2020-09-17] MEDS ORDERED: METOPROLOL TARTRATE 1 MG/ML AMPUL IV ONE ×2 (18:44→20:00)
--- NOTE | 2020-09-17 18:49 | HP ---
Chief Complaint - Chief Complaint Date of Service: 09/17/20 Time of Service: 18:25 Chief Complaint: Abdominal pain History of Present Illness: 40-year-old male with a past medical history of diabetes mellitus type 2, hypertension, hypokalemia, alcohol abuse presents from home with complaints of generalized abdominal pain. Denies nausea, or vomiting. He states his last drink of alcohol was 3 days ago. He typically drinks 3 to 4 cans of beer daily. He had a prior admission for alcohol withdrawal in February 2020. On exam he was tachycardic with heart rate of 138, hypertensive with blood pressure 184/112. Blood work is positive for hypokalemia at 2.7, hypomagnesemia at 1.1, amylase and lipase are normal, AST is elevated at 51, total bili is 1.4 abdominal x-ray shows nonobstructive bowel gas pattern, no free air. He is being admitted for electrolyte abnormalities and alcohol withdrawal. Medical History (Last Reviewed 09/17/20 @ 16:49 by MO Lopez) Pharyngitis (Acute) Chest pain (Resolved) Alcohol withdrawal (Acute) Hypertension (Acute) New onset type 2 diabetes mellitus (Acute) Tachycardia (Acute) Hypokalemia (Acute) No pertinent past medical history Surgical History: Surgical History (Last Reviewed 09/17/20 @ 16:49 by MO Lopez) No pertinent past surgical history [place] teeth extracted Family History: Family History (Last Reviewed 09/17/20 @ 16:49 by MO Lopez) Mother Emphysema of lung Father No problems noted. Social History: (Last Reviewed 09/17/20 @ 16:49 by MO Lopez) Social History: long term: No Marital status: household members: spouse number of children: 1 current occupational status: employed current occupation: [employer] Highest level of school completed/degree received: high school graduate Service: No Tobacco: Smoking Status: Former smoker second hand exposure: No Alcohol: alcohol intake: current alcohol intake frequency: holiday/special occasion Substance Use: substance use type: does not use Dietary Habits: caffeine: Yes caffeine comment: daily Type: other Exercise: Physical activity functional status: normal ROM and activity Review Of Systems (GEN) - Review of Systems Generalized/Overall Review: Absent: Fever Respiratory: Absent: Shortness of Breath Cardiac: Absent: Chest Pain Abdominal: Present: Abdominal Pain Misc: All systems neg except as marked Immunizations: IMMUNIZATION HX Immunizations Up to Date Yes History of Influenza Vaccine No Hx Pneumococcal Vaccination No Allergies/Adverse Reactions: Allergies Allergy/AdvReac Type Severity Reaction Status Date / Time No Known Allergies Allergy Verified 09/17/20 16:29 Home Medications: HOME MEDICATIONS metFORMIN HCL [Metformin HCl ER] 500 mg PO BID #60 tab.er.24h 03/11/20 [Last Taken Unknown] Chlorthalidone [Hygroton] 25 mg PO DAILY #30 tab 03/12/20 [Last Taken Unknown] Isradipine 2.5 mg PO DAILY #30 cap 03/12/20 [Last Taken Unknown] Lisinopril [Zestril] 40 mg PO DAILY #30 tab 03/12/20 [Last Taken Unknown] Metoprolol Tartrate [Lopressor] 25 mg PO BID #60 tab 03/12/20 [Last Taken Unknown] blood sugar diagnostic See Rx Instructions .ROUTE .MEDSUPPLY #1 ea 03/12/20 [Last Taken Unknown] blood-glucose meter See Rx Instructions .ROUTE .MEDSUPPLY #1 ea 03/12/20 [Last Taken Unknown] lancets 33 gauge See Rx Instructions .ROUTE .MEDSUPPLY #100 ea 03/12/20 [Last Taken Unknown] Exam - Exam Vital Signs: Vital Signs - Last Taken Temp 36.3 C 09/17/20 16:25 Pulse 114 H 09/17/20 18:00 Resp 22 H 09/17/20 18:00 BP 153/99 H 09/17/20 18:00 Pulse Ox 98 09/17/20 18:00 Constitutional: Present: Alert, Cooperative, Well developed, Well nourished, No distress ENT Exam: Present: hearing grossly normal, moist mucous membranes Eye Exam: bilateral eye: normal inspection, PERRL, EOMI Neck: Present: non-tender, supple. Absent: lymphadenopathy (R), lymphadenopathy (L) Back Exam: Present: normal inspection, no CVA tenderness, no vertebral tenderness Respiratory: Present: lungs clear, no respiratory distress, no accessory muscle use, No wheezing. Absent: crackles, rhonchi Cardiovascular/Chest: Present: normal peripheral pulses, regular rate, rhythm, no edema, no murmur Peripheral Pulses: dorsalis-pedis (R): 2+, dorsalis-pedis (L): 2+ Abdomen: Present: Normal bowel sounds, soft, nontender Extremity: Present: no pedal edema Skin Exam: Present: normal color, warm/dry Neurologic: Present: alert, normal mood/affect, other - tremors Appearance: Present: appropriate appearance, appropriate insight Eye contact: Present: cooperative Thoughts: Present: normal thought pattern, normal mood /affect Diagnostic Studies: Abnormal Lab Results 09/17/20 09/17/20 09/17/20 Range/Units 16:42 16:42 16:42 Lymphocytes % 18.2 L (20-51) % Monocytes % 16.5 H (0.0-9) % Lymphocytes # 0.84 L (1.5-3.5) k/mm3 Potassium 2.7 L (3.4-4.6) mmol/L Chloride 91 L (97-106) mmol/L Anion Gap 16.3 H (6.8-13.8) mmol/L BUN 5 L D (6-23) mg/dL BUN/Creatinine Ratio 4.7 L (9.0-21.6) Random Glucose 250 H (70-110) mg/dL Magnesium 1.1 L (1.2-2.8) mg/dL Total Bilirubin 1.4 H (0.0-1.1) mg/dL AST 51 H (0-48) U/L Total Protein 8.7 H (6.2-8.2) gm/dL Urine Protein (NEGATIVE) mg/dL Urine Glucose (UA) (NEGATIVE) mg/dL Urine Blood (NEGATIVE) /ul Urine Bilirubin (NEGATIVE) mg/dl Urine Ictotest (NEGATIVE) Prot Sulfosalicylic Acd (0) mg/dL Urine RBC (0-5) /hpf Ur Transition Epith Cell (NONE) /hpf Hyaline Casts (NONE) /LPF Urine Mucus (NONE) Ethyl Alcohol 56.0 H (0.0-10.0) mg/dL 09/17/20 Range/Units 17:45 Lymphocytes % (20-51) % Monocytes % (0.0-9) % Lymphocytes # (1.5-3.5) k/mm3 Potassium (3.4-4.6) mmol/L Chloride (97-106) mmol/L Anion Gap (6.8-13.8) mmol/L BUN (6-23) mg/dL BUN/Creatinine Ratio (9.0-21.6) Random Glucose (70-110) mg/dL Magnesium (1.2-2.8) mg/dL Total Bilirubin (0.0-1.1) mg/dL AST (0-48) U/L Total Protein (6.2-8.2) gm/dL Urine Protein 100 H (NEGATIVE) mg/dL Urine Glucose (UA) 250 H (NEGATIVE) mg/dL Urine Blood 25 H (NEGATIVE) /ul Urine Bilirubin 1 H (NEGATIVE) mg/dl Urine Ictotest Positive H (NEGATIVE) Prot Sulfosalicylic Acd 3+ H (0) mg/dL Urine RBC 5-10 H (0-5) /hpf Ur Transition Epith Cell Few - 1+ H (NONE) /hpf Hyaline Casts >25 H (NONE) /LPF Urine Mucus Moderate - 2+ H (NONE) Ethyl Alcohol (0.0-10.0) mg/dL Laboratory Results WBC 4.6 K/mm3 (4.0-10.5) 09/17/20 16:42 RBC 5.49 M/mm3 (4.7-6.0) 09/17/20 16:42 Hgb 16.2 gm/dL (13.5-18.0) 09/17/20 16:42 Hct 46.5 % (42.0-52.0) 09/17/20 16:42 MCV 84.7 fl (78-100) 09/17/20 16:42 MCH 29.5 pg (27-31) 09/17/20 16:42 MCHC 34.8 g/dl (32-36) 09/17/20 16:42 RDW 11.6 % (11.5-14.0) 09/17/20 16:42 Plt Count 163 K/mm3 (150-450) 09/17/20 16:42 MPV 9.5 fl (8-11.3) 09/17/20 16:42 Immature Gran % (Auto) 0.40 % (0.001-0.429) 09/17/20 16:42 Immature Gran # (Auto) 0.02 K/mm3 (0.000-0.0310) 09/17/20 16:42 Neutrophils % 64.2 % (42-75.0) 09/17/20 16:42 Lymphocytes % 18.2 % (20-51) L 09/17/20 16:42 Monocytes % 16.5 % (0.0-9) H 09/17/20 16:42 Eosinophils % 0.0 % (0.0-3.0) 09/17/20 16:42 Basophils % 0.7 % (0.0-1.0) 09/17/20 16:42 Nucleated RBC % 0.0 k/mm3 (0-1) 09/17/20 16:42 Neutrophils # 3.0 K/mm3 (1.3-6.0) 09/17/20 16:42 Lymphocytes # 0.84 k/mm3 (1.5-3.5) L 09/17/20 16:42 Monocytes # 0.8 k/mm3 (0.0-1.0) 09/17/20 16:42 Eosinophils # 0.0 k/mm3 (0.0-0.7) 09/17/20 16:42 Absolute Basophils 0.0 k/mm3 (0.0-0.1) 09/17/20 16:42 Sodium 133 mmol/L (132-142) 09/17/20 16:42 Plasma Sodium 135 mmol/L (130-142) 09/17/20 16:42 Potassium 2.7 mmol/L (3.4-4.6) L 09/17/20 16:42 Chloride 91 mmol/L (97-106) L 09/17/20 16:42 Carbon Dioxide 28.4 mmol/L (24-32.6) 09/17/20 16:42 Anion Gap 16.3 mmol/L (6.8-13.8) H 09/17/20 16:42 BUN 5 mg/dL (6-23) L D 09/17/20 16:42 Creatinine 1.06 mg/dL (0.4-1.4) 09/17/20 16:42 Est GFR (Non-Af Amer) 82 mL/min (60-130) 09/17/20 16:42 BUN/Creatinine Ratio 4.7 (9.0-21.6) L 09/17/20 16:42 Random Glucose 250 mg/dL (70-110) H 09/17/20 16:42 Calcium 8.9 mg/dL (7.9-10.9) 09/17/20 16:42 Calcium Adj for Albumin 8.8 mg/dL (8.4-10.2) 09/17/20 16:42 Magnesium 1.1 mg/dL (1.2-2.8) L 09/17/20 16:42 Total Bilirubin 1.4 mg/dL (0.0-1.1) H 09/17/20 16:42 AST 51 U/L (0-48) H 09/17/20 16:42 ALT 48 U/L (19-67) 09/17/20 16:42 Alkaline Phosphatase 103 U/L (50-170) 09/17/20 16:42 Troponin I Less than 0.017 ng/mL (0.00-0.10) 09/17/20 16:42 Total Protein 8.7 gm/dL (6.2-8.2) H 09/17/20 16:42 Albumin 3.7 gm/dl (3.4-5.0) 09/17/20 16:42 Amylase 39 U/L (25-115) 09/17/20 16:42 Lipase 194 U/L (73-393) 09/17/20 16:42 Urine Color Dark yellow 09/17/20 17:45 Urine Appearance Slightly cloudy (CLEAR) 09/17/20 17:45 Urine pH 6.5 pH (5.0-7.0) 09/17/20 17:45 Ur Specific [place] 1.025 SP.GR. (1.005-1.030) 09/17/20 17:45 Urine Protein 100 mg/dL (NEGATIVE) H 09/17/20 17:45 Urine Glucose (UA) 250 mg/dL (NEGATIVE) H 09/17/20 17:45 Urine Ketones 50 mg/dL (NEGATIVE) 09/17/20 17:45 Urine Blood 25 /ul (NEGATIVE) H 09/17/20 17:45 Urine Nitrate Negative (NEGATIVE) 09/17/20 17:45 Urine Bilirubin 1 mg/dl (NEGATIVE) H 09/17/20 17:45 Urine Ictotest Positive (NEGATIVE) H 09/17/20 17:45 Prot Sulfosalicylic Acd 3+ mg/dL (0) H 09/17/20 17:45 Urine Urobilinogen Normal EU/dl (NORMAL) 09/17/20 17:45 Ur Leukocyte Esterase Negative /ul (NEGATIVE) 09/17/20 17:45 Urine RBC 5-10 /hpf (0-5) H 09/17/20 17:45 Urine WBC 0-5 /hpf (0-5) 09/17/20 17:45 Ur Epithelial Cells 0-5 /hpf (0-5) 09/17/20 17:45 Ur Transition Epith Cell Few - 1+ /hpf (NONE) H 09/17/20 17:45 Urine Bacteria Trace (NONE) 09/17/20 17:45 Hyaline Casts >25 /LPF (NONE) H 09/17/20 17:45 Urine Mucus Moderate - 2+ (NONE) H 09/17/20 17:45 Urine Culture Comments No culture indicated 09/17/20 17:45 Urine Opiates Screen Negative (NEGATIVE) 09/17/20 17:45 Barbiturate Screen Negative (NEGATIVE) 09/17/20 17:45 Ur Phencyclidine Scrn Negative (NEGATIVE) 09/17/20 17:45 Urine Amphetamine Negative (NEGATIVE) 09/17/20 17:45 U Benzodiazepines Scrn Negative (NEGATIVE) 09/17/20 17:45 Urine Cocaine Screen Negative (NEGATIVE) 09/17/20 17:45 Urine Marijuana (THC) Negative (NEGATIVE) 09/17/20 17:45 Ethyl Alcohol 56.0 mg/dL (0.0-10.0) H 09/17/20 16:42 Assessment/Plan - Narrative Narrative: 40-year-old male with a past medical history of diabetes mellitus type 2, hypertension, hypokalemia, alcohol abuse presents from home with complaints of generalized abdominal pain. Denies nausea, or vomiting. He states his last drink of alcohol was 3 days ago. He typically drinks 3 to 4 cans of beer daily. He had a prior admission for alcohol withdrawal in February 2020. On exam he was tachycardic with heart rate of 138, hypertensive with blood pressure 184/112. Blood work is positive for hypokalemia at 2.7, hypomagnesemia at 1.1, amylase and lipase are normal, AST is elevated at 51, total bili is 1.4 abdominal x-ray shows nonobstructive bowel gas pattern, no free air. He is being admitted for electrolyte abnormalities and alcohol withdrawal. Plan #1 start CIWA protocol with as needed Ativan #2 resume home medications #3 CBC and CMP and magnesium in the morning #4 start banana bag #5 replete electrolytes as needed. - Assessment/Plan (1) Alcohol withdrawal Problem: Acute Qualifiers: (2) Hypomagnesemia Problem: Acute (3) Hypokalemia Problem: Acute (4) Hypertension Problem: Acute Qualifiers: (5) Tachycardia Problem: Acute (6) Diabetes mellitus Problem: Chronic Qualifiers: Diabetes mellitus type: type 2
[2020-09-17] MEDS ORDERED: LORazepam 1 MG TABLET PO PRN ×2 (18:59)
[2020-09-17] MEDS ORDERED: ENOXAPARIN SODIUM 100 MG/ML SYRG SC ONE (21:43)
[2020-09-17] MEDS ORDERED: MULTIVIT INFUSN ADULT K IV SCH (21:45)
[2020-09-17] MEDS ORDERED: NORMAL SALINE IV SCH (21:45)
[2020-09-17] MEDS: METOPROLOL TARTRATE 25 MG TABLET PO SCH (22:50)
[2020-09-18] MEDS: LORazepam 1 MG TABLET PO PRN ×4 (05:08→23:41)
[2020-09-18 06:38] LABS: Hematocrit 45.6 % (42.0-52.0); Hemoglobin 15.8 gm/dL (13.5-18.0); Mean Corpuscular Hemoglobin 29.8 pg (27-31); Mean Corpuscular Hgb Conc 34.6 g/dl (32-36); Mean Platelet Volume 9.9 fl (8-11.3); Neutrophil # 2.4 K/mm3 (1.3-6.0); Neutrophil % 58.7 % (42-75.0); Platelet Count 142 K/mm3 (150-450); Red Cell Distribution Width 11.7 % (11.5-14.0); White Blood Count 4.1 K/mm3 (4.0-10.5)
[2020-09-18 06:52] LABS: Albumin * 3.4 gm/dl (3.4-5.0); Anion Gap 14.1 mmol/L (6.8-13.8); BUN/Creatinine Ratio 8.1 (9.0-21.6); Bilirubin, Total 1.6 mg/dL (0.0-1.1); Ca. Corrected For Albumin 8.7 mg/dL (8.4-10.2); Calcium * 8.5 mg/dL (7.9-10.9); Carbon Dioxide 29.8 mmol/L (24-32.6); Potassium 2.9 mmol/L (3.4-4.6); Total Protein 8.1 gm/dL (6.2-8.2)
[2020-09-18] MEDS: CHLORTHALIDONE 25 MG TABLET PO SCH (08:22)
[2020-09-18] MEDS: LISINOPRIL 40 MG TABLET PO SCH (08:22)
[2020-09-18] MEDS: METOPROLOL TARTRATE 25 MG TABLET PO SCH (08:23)
[2020-09-18] MEDS ORDERED: MAGNESIUM SULFATE IN WATER 50 ML IV ONE (09:42)
[2020-09-18] MEDS ORDERED: POTASSIUM BICARBONATE/CIT AC 25 MEQ TABLET.EFF PO ONE ×2 (09:44→16:25)
[2020-09-18] MEDS ORDERED: MAGNESIUM OXIDE 400 MG TABLET PO ONE (10:00)
[2020-09-18] MEDS ORDERED: METOPROLOL TARTRATE 25 MG TABLET PO ONE (11:30)
[2020-09-18] MEDS: hydrALAZINE HCL 25 MG TABLET PO SCH ×3 (12:14→23:41)
[2020-09-18] MEDS: amLODIPine BESYLATE 5 MG TABLET PO SCH (13:23)
[2020-09-18 15:06] LABS: Potassium 3.1 mmol/L (3.4-4.6)
[2020-09-18] MEDS ORDERED: METOPROLOL TARTRATE 50 MG TABLET PO SCH (16:15)
--- NOTE | 2020-09-18 16:23 | PN ---
Subjective - Date and Time Seen Date: 09/18/20 Time: 10:29 Subjective Narrative: He states he feels better today. Complains of mild abdominal discomfort. He is tolerating his diet. Denies shortness of breath or chest pain. Objective - Review of Systems Generalized/Overall Review: Denies: Fever Respiratory: Denies: Shortness of Breath Cardiac: Denies: Chest Pain Abdominal: Denies: Abdominal Pain Misc: All systems neg except as marked - Vitals Vitals: Last Vital Signs Temp 36.6 C 09/18/20 13:25 Pulse 117 H 09/18/20 13:25 Resp 16 09/18/20 13:25 BP 152/104 H 09/18/20 13:25 Pulse Ox 96 09/18/20 13:25 - Abnormal Lab Findings Abnormal Lab Findings: Abnormal Lab Results 09/17/20 09/17/20 09/17/20 Range/Units 16:42 16:42 16:42 Plt Count (150-450) K/mm3 Immature Gran % (Auto) (0.001-0.429) % Lymphocytes % 18.2 L (20-51) % Monocytes % 16.5 H (0.0-9) % Lymphocytes # 0.84 L (1.5-3.5) k/mm3 D-Dimer (0.19-0.49) ug/mL Potassium 2.7 L (3.4-4.6) mmol/L Chloride 91 L (97-106) mmol/L Anion Gap 16.3 H (6.8-13.8) mmol/L BUN 5 L D (6-23) mg/dL BUN/Creatinine Ratio 4.7 L (9.0-21.6) Random Glucose 250 H (70-110) mg/dL Magnesium 1.1 L (1.2-2.8) mg/dL Total Bilirubin 1.4 H (0.0-1.1) mg/dL AST 51 H (0-48) U/L Total Protein 8.7 H (6.2-8.2) gm/dL Urine Protein (NEGATIVE) mg/dL Urine Glucose (UA) (NEGATIVE) mg/dL Urine Blood (NEGATIVE) /ul Urine Bilirubin (NEGATIVE) mg/dl Urine Ictotest (NEGATIVE) Prot Sulfosalicylic Acd (0) mg/dL Urine RBC (0-5) /hpf Ur Transition Epith Cell (NONE) /hpf Hyaline Casts (NONE) /LPF Urine Mucus (NONE) Ethyl Alcohol 56.0 H (0.0-10.0) mg/dL SARS-CoV-2 (PCR) (NotDetected) 09/17/20 09/17/20 09/17/20 Range/Units 16:42 17:45 18:28 Plt Count (150-450) K/mm3 Immature Gran % (Auto) (0.001-0.429) % Lymphocytes % (20-51) % Monocytes % (0.0-9) % Lymphocytes # (1.5-3.5) k/mm3 D-Dimer 0.58 H (0.19-0.49) ug/mL Potassium (3.4-4.6) mmol/L Chloride (97-106) mmol/L Anion Gap (6.8-13.8) mmol/L BUN (6-23) mg/dL BUN/Creatinine Ratio (9.0-21.6) Random Glucose (70-110) mg/dL Magnesium (1.2-2.8) mg/dL Total Bilirubin (0.0-1.1) mg/dL AST (0-48) U/L Total Protein (6.2-8.2) gm/dL Urine Protein 100 H (NEGATIVE) mg/dL Urine Glucose (UA) 250 H (NEGATIVE) mg/dL Urine Blood 25 H (NEGATIVE) /ul Urine Bilirubin 1 H (NEGATIVE) mg/dl Urine Ictotest Positive H (NEGATIVE) Prot Sulfosalicylic Acd 3+ H (0) mg/dL Urine RBC 5-10 H (0-5) /hpf Ur Transition Epith Cell Few - 1+ H (NONE) /hpf Hyaline Casts >25 H (NONE) /LPF Urine Mucus Moderate - 2+ H (NONE) Ethyl Alcohol (0.0-10.0) mg/dL SARS-CoV-2 (PCR) Detected H (NotDetected) 09/18/20 09/18/20 09/18/20 Range/Units 06:32 06:32 14:48 Plt Count 142 L (150-450) K/mm3 Immature Gran % (Auto) 0.50 H (0.001-0.429) % Lymphocytes % (20-51) % Monocytes % 14.3 H (0.0-9) % Lymphocytes # 1.07 L (1.5-3.5) k/mm3 D-Dimer (0.19-0.49) ug/mL Potassium 2.9 L 3.1 L (3.4-4.6) mmol/L Chloride 91 L (97-106) mmol/L Anion Gap 14.1 H (6.8-13.8) mmol/L BUN (6-23) mg/dL BUN/Creatinine Ratio 8.1 L (9.0-21.6) Random Glucose 208 H (70-110) mg/dL Magnesium 1.0 L 1.0 L (1.2-2.8) mg/dL Total Bilirubin 1.6 H (0.0-1.1) mg/dL AST 57 H (0-48) U/L Total Protein (6.2-8.2) gm/dL Urine Protein (NEGATIVE) mg/dL Urine Glucose (UA) (NEGATIVE) mg/dL Urine Blood (NEGATIVE) /ul Urine Bilirubin (NEGATIVE) mg/dl Urine Ictotest (NEGATIVE) Prot Sulfosalicylic Acd (0) mg/dL Urine RBC (0-5) /hpf Ur Transition Epith Cell (NONE) /hpf Hyaline Casts (NONE) /LPF Urine Mucus (NONE) Ethyl Alcohol (0.0-10.0) mg/dL SARS-CoV-2 (PCR) (NotDetected) - Exam Constitutional: Present: Alert, Cooperative, Well developed, Well nourished, No distress, Middle aged ENT Exam: Present: hearing grossly normal Neck: Present: non-tender, supple. Absent: lymphadenopathy (R), lymphadenopathy (L) Respiratory: Present: lungs clear, no respiratory distress, no accessory muscle use, No wheezing. Absent: crackles, rhonchi Cardiovascular/Chest: Present: normal peripheral pulses, no murmur, tachycardia Abdomen: Present: Normal bowel sounds, soft, nontender Extremity: Present: non-tender, no pedal edema Skin Exam: Present: normal color, warm/dry Neurologic: Present: alert, normal mood/affect Appearance: Present: appropriate appearance Eye contact: Present: cooperative Thoughts: Present: normal mood /affect Assessment/Plan Plan Narrative: 40-year-old male with a past medical history of diabetes mellitus type 2, hypertension, hypokalemia, alcohol abuse presents from home with complaints of generalized abdominal pain. Denies nausea, or vomiting. He states his last drink of alcohol was 3 days ago. He typically drinks 3 to 4 cans of beer daily. He had a prior admission for alcohol withdrawal in February 2020. On exam he was tachycardic with heart rate of 138, hypertensive with blood pressure 184/112. Blood work is positive for hypokalemia at 2.7, hypomagnesemia at 1.1, amylase and lipase are normal, AST is elevated at 51, total bili is 1.4 abdominal x-ray shows nonobstructive bowel gas pattern, no free air. He is being admitted for electrolyte abnormalities and alcohol withdrawal. CIWA this morning was 6. His blood pressure and heart rate continue to be elevated. I will start him on hydralazine, amlodipine and increase his metoprolol. Repeat BMP this afternoon. Plan #1 start CIWA protocol with as needed Ativan #2 resume home medications #3 CBC and CMP and magnesium in the morning #4 start hydralazine 25 mg every 6 hours 12 to 50 mg daily, start amlodipine 5 mg daily #5 replete electrolytes as needed. Potassium has improved with repletion #6 continuous Lovenox 40 mg daily for DVT prophylaxis in the setting of COVID-19 positivity - Problems/Diagnosis (1) Alcohol withdrawal Problem: Acute Qualifiers: Complication of substance-induced condition: with unspecified complication Qualified Code(s): F10.239 - Alcohol dependence with withdrawal, unspecified (2) Hypomagnesemia Problem: Acute (3) Hypokalemia Problem: Acute (4) Hypertension Problem: Acute Qualifiers: Hypertension type: essential hypertension Qualified Code(s): I10 - Essential (primary) hypertension (5) Tachycardia Problem: Acute (6) Diabetes mellitus Problem: Chronic Qualifiers: Diabetes mellitus type: type 2 Diabetes mellitus jail insulin use: without jail use Diabetes mellitus complication status: with hyperglycemia Qualified Code(s): E11.65 - Type 2 diabetes mellitus with hyperglycemia (7) COVID-19 Problem: Acute
[2020-09-18] MEDS ORDERED: ENOXAPARIN SODIUM 40 MG/0.4 ML SYRG SC SCH (21:00)
[2020-09-18] MEDS: METOPROLOL TARTRATE 50 MG TABLET PO SCH (21:50)
[2020-09-19] MEDS: hydrALAZINE HCL 25 MG TABLET PO SCH ×2 (05:29→12:03)
[2020-09-19 07:16] LABS: Albumin * 3.4 gm/dl (3.4-5.0); Anion Gap 13.1 mmol/L (6.8-13.8); BUN/Creatinine Ratio 15.5 (9.0-21.6); Bilirubin, Total 1.9 mg/dL (0.0-1.1); Calcium * 8.8 mg/dL (7.9-10.9); Carbon Dioxide 31.4 mmol/L (24-32.6); Total Protein 8.1 gm/dL (6.2-8.2)
[2020-09-19 07:59] LABS: Potassium 2.5 mmol/L (3.4-4.6)
[2020-09-19] MEDS ORDERED: POTASSIUM BICARBONATE/CIT AC 25 MEQ TABLET.EFF PO ONE (08:24)
[2020-09-19] MEDS: CHLORTHALIDONE 25 MG TABLET PO SCH (08:52)
[2020-09-19] MEDS: amLODIPine BESYLATE 5 MG TABLET PO SCH (08:53)
[2020-09-19] MEDS: LISINOPRIL 40 MG TABLET PO SCH (08:53)
[2020-09-19] MEDS: METOPROLOL TARTRATE 50 MG TABLET PO SCH (08:53)
[2020-09-19] MEDS ORDERED: NORMAL SALINE 1,000 ML IV PRN (09:18)
[2020-09-19] MEDS ORDERED: SODIUM CHLORIDE 1 GM TABLET PO SCH (09:30)
[2020-09-19 12:39] LABS: Albumin * 3.4 gm/dl (3.4-5.0); Anion Gap 12.5 mmol/L (6.8-13.8); BUN/Creatinine Ratio 18.3 (9.0-21.6); Ca. Corrected For Albumin 9.3 mg/dL (8.4-10.2); Calcium * 9.1 mg/dL (7.9-10.9); Carbon Dioxide 31.1 mmol/L (24-32.6); Potassium 3.6 mmol/L (3.4-4.6); Total Protein 8.2 gm/dL (6.2-8.2)
--- NOTE | 2020-09-19 13:21 | DS ---
(1) Alcohol withdrawal Problem: Acute Qualifiers: Complication of substance-induced condition: with unspecified complication Qualified Code(s): F10.239 - Alcohol dependence with withdrawal, unspecified (2) Hypomagnesemia Problem: Acute (3) Hypokalemia Problem: Acute (4) Hypertension Problem: Acute Qualifiers: Hypertension type: essential hypertension Qualified Code(s): I10 - Essential (primary) hypertension (5) Tachycardia Problem: Acute (6) Diabetes mellitus Problem: Chronic Qualifiers: Diabetes mellitus type: type 2 Diabetes mellitus intermediate teacher insulin use: without penitentiary use Diabetes mellitus complication status: with hyperglycemia Qualified Code(s): E11.65 - Type 2 diabetes mellitus with hyper glycemia (7) COVID-19 Problem: Acute Hospital Course: 40-year-old male with a past medical history of diabetes mellitus type 2, hyp ertension, hypokalemia, alcohol abuse presents from home with complaints of generalized abdominal pain. Denies nausea, or vomiting. He states his last drink of alcohol was 3 days ago. He typically drinks 3 to 4 cans of beer daily. He had a prior admission for alcohol withdrawal in February 2020. On exam he was tachycardic with heart rate of 138, hypertensive with blood pressure 184/112. Blood work is positive for hypokalemia at 2.7, hypomagnesemia at 1.1, amylase and lipase are normal, AST is elevated at 51, total bili is 1.4 abdominal x-ray shows nonobstructive bowel gas pattern, no free air. He is being admitted for electrolyte abnormalities and alcohol withdrawal. His blood pressure and heart rate have improved significantly. His potassium normalized with repletion. He is stable to be discharged home today. He will need to follow-up and establish with a PCP within 1 to 2 weeks. He has been advised on importance of taking his medications as prescribed. Procedures Performed: none Results and Findings: Lab Pending Results 09/17/20 16:42: WBC 4.6, RBC 5.49, Hgb 16.2, Hct 46.5, MCV 84.7, MCH 29.5, MCHC 34.8, RDW 11.6, Plt Count 163, MPV 9.5, Immature Gran % (Auto) 0.40, Immature Gran # (Auto) 0.02, Neutrophils % 64.2, Lymphocytes % 18.2 L, Monocytes % 16.5 H, Eosinophils % 0.0, Basophils % 0.7, Nucleated RBC % 0.0, Neutrophils # 3.0, Lymphocytes # 0.84 L, Monocytes # 0.8, Eosinophils # 0.0, Absolute Basophils 0.0 09/17/20 16:42: Sodium 133, Plasma Sodium 135, Potassium 2.7 L, Chloride 91 L, Carbon Dioxide 28.4, Anion Gap 16.3 H, BUN 5 L D, Creatinine 1.06, Est GFR (Non- Af Amer) 82, BUN/Creatinine Ratio 4.7 L, Random Glucose 250 H, Calcium 8.9, Calcium Adj for Albumin 8.8, Total Bilirubin 1.4 H, AST 51 H, ALT 48, Alkaline Phosphatase 103, Troponin I Less than 0.017, Total Protein 8.7 H, Albumin 3.7, Amylase 39, Lipase 194, Ethyl Alcohol 56.0 H 09/17/20 16:42: Magnesium 1.1 L 09/17/20 16:42: D-Dimer 0.58 H 09/17/20 17:45: Urine Color Dark yellow, Urine Appearance Slightly cloudy, Urine pH 6.5, Ur Specific [place] 1.025, Urine Protein 100 H, Urine Glucose (UA) 250 H, Urine Ketones 50, Urine Blood 25 H, Urine Nitrate Negative, Urine Bilirubin 1 H, Urine Ictotest Positive H, Prot Sulfosalicylic Acd 3+ H, Urine Urobilinogen Normal, Ur Leukocyte Esterase Negative, Urine RBC 5-10 H, Urine WBC 0-5, Ur Epithelial Cells 0-5, Ur Transition Epith Cell Few - 1+ H, Urine Bacteria Trace, Hyaline Casts >25 H, Urine Mucus Moderate - 2+ H, Urine Culture Comments No culture indicated 09/17/20 17:45: Urine Opiates Screen Negative, Barbiturate Screen Negative, Ur Phencyclidine Scrn Negative, Urine Amphetamine Negative, U Benzodiazepines Scrn Negative, Urine Cocaine Screen Negative, Urine Marijuana (THC) Negative 09/17/20 18:28: SARS-CoV-2 (PCR) Detected H 09/18/20 06:32: WBC 4.1, RBC 5.30, Hgb 15.8, Hct 45.6, MCV 86.0, MCH 29.8, MCHC 34.6, RDW 11.7, Plt Count 142 L, MPV 9.9, Immature Gran % (Auto) 0.50 H, Imm ature Gran # (Auto) 0.02, Neutrophils % 58.7, Lymphocytes % 25.8, Monocytes % 14.3 H, Eosinophils % 0.0, Basophils % 0.7, Nucleated RBC % 0.0, Neutrophils # 2.4, Lymphocytes # 1.07 L, Monocytes # 0.6, Eosinophils # 0.0, Absolute Basophils 0.0 09/18/20 06:32: Sodium 132, Plasma Sodium 134, Potassium 2.9 L, Chloride 91 L, Carbon Dioxide 29.8, Anion Gap 14.1 H, BUN 7, Creatinine 0.86, Est GFR (Non-Af Amer) 104 D, BUN/Creatinine Ratio 8.1 L, Random Glucose 208 H, Calcium 8.5, Calcium Adj for Albumin 8.7, Magnesium 1.0 L, Total Bilirubin 1.6 H, AST 57 H, ALT 49, Alkaline Phosphatase 93, Total Protein 8.1, Albumin 3.4 09/18/20 14:48: Potassium 3.1 L, Magnesium 1.0 L 09/19/20 06:55: Sodium 128 L, Plasma Sodium 131, Potassium 2.5 L, Chloride 86 L, Carbon Dioxide 31.4, Anion Gap 13.1, BUN 17 D, Creatinine 1.10, Est GFR (Non-Af Amer) 78 D, BUN/Creatinine Ratio 15.5, Random Glucose 264 H, Calcium 8.8, Calcium Adj for Albumin 9.0, Total Bilirubin 1.9 H, AST 63 H, ALT 51, Alkaline Phosphatase 91, Total Protein 8.1, Albumin 3.4 09/19/20 12:17: Sodium 126 L, Plasma Sodium 130, Potassium 3.6 D, Chloride 86 L, Carbon Dioxide 31.1, Anion Gap 12.5, BUN 23, Creatinine 1.26, Est GFR (Non-Af Amer) 67, BUN/Creatinine Ratio 18.3, Random Glucose 380 H D, Calcium 9.1, Calcium Adj for Albumin 9.3, Total Bilirubin 2.0 H, AST 68 H, ALT 57, Alkaline Phosphatase 94, Total Protein 8.2, Albumin 3.4 Discharge Location: Home Disposition: Home self-care Condition: Fair Discharge Activity: Activity as tolerated Discharge Diet: Consistent carbs Prescriptions (Any new or edited meds): hydrALAZINE HCL [Apresoline] 25 mg PO Q8H #90 tab Transmission Status: Pending to [facility] metFORMIN HCL [Glucophage Xr] 500 mg PO BID #60 tab.sr.24h Transmission Status: Pending to [facility] Chlorthalidone [Hygroton] 25 mg PO DAILY #30 tab Transmission Status: Pending to [facility] Isradipine 2.5 mg PO DAILY #30 cap Transmission Status: Pending to [facility] Metoprolol Tartrate [Lopressor] 50 mg PO BID #60 tab Transmission Status: Pending to [facility] Lisinopril [Zestril] 40 mg PO DAILY #30 tab Transmission Status: Pending to [facility] Complete Home Medications List: Complete Home Medication List: metFORMIN HCL [Metformin HCl ER] 500 mg PO BID #60 tab.er.24h 03/11/20 blood sugar diagnostic See Rx Instructions .ROUTE .MEDSUPPLY #1 ea 03/12/20 blood-glucose meter See Rx Instructions .ROUTE .MEDSUPPLY #1 ea 03/12/20 lancets 33 gauge See Rx Instructions .ROUTE .MEDSUPPLY #100 ea 03/12/20 Chlorthalidone [Hygroton] 25 mg PO DAILY #30 tab 09/19/20 Isradipine 2.5 mg PO DAILY #30 cap 09/19/20 Lisinopril [Zestril] 40 mg PO DAILY #30 tab 09/19/20 Metoprolol Tartrate [Lopressor] 50 mg PO BID #60 tab 09/19/20 hydrALAZINE HCL [Apresoline] 25 mg PO Q8H #90 tab 09/19/20 metFORMIN HCL [Glucophage Xr] 500 mg PO BID #60 tab.sr.24h 09/19/20
[2020-09-19 14:10] VITALS: BP 98/65
== END 2020-09-19 14:20 | disposition home or self-care (01) ==
LOC: ER 16:11 → MS 16:11
PROVIDERS: ADMIT Internal Medicine; ATTEND Internal Medicine
DX: R19.7 Diarrhea, unspecified; F10.239 Alcohol dependence with withdrawal, unspecified; Z87.891 Personal history of nicotine dependence; E87.6 Hypokalemia; U07.1 COVID-19; I10 Essential (primary) hypertension; R10.13 Epigastric pain; E11.65 Type 2 diabetes mellitus with hyperglycemia; Z79.84 Long term (current) use of oral hypoglycemic drugs; E83.42 Hypomagnesemia